=== PATIENT | male | born 1980 | race Caucasian/White ===

== ENCOUNTER 2022-05-14 20:01 | Emergency (ER) | payer OTHER ==
[~2022-05-14] VITALS: Ht 185.4 cm; Wt 81.6 kg
[~2022-05-14 20:01] MED LIST: ANAPROX DS550 MG PO; BENZOYL PEROXIDE 10% TP; DOXYCYCLINE MO100 MG PO; FLEXERIL10 MG PO; GEODON80 MG PO; MEDROL DOSEPAK4 MG PO; MOTRIN800 MG PO; TYLENOL W/CODEI1 TA2 PO; VALIUM10 MG PO; VOLTAREN75 MG PO; XANAX2 MG PO; ZITHROMAX Z PA250 MG PO; ZOVIRAX400 MG PO
[2022-05-14 20:10] VITALS: BP 132/110
[2022-05-14] MEDS ORDERED: CEPHALEXIN500 M1 PO (22:03)
[2022-05-14] MEDS ORDERED: ALBUTEROL2.5 MG/0.5 INH (22:03)
== END 2022-05-14 22:17 | disposition home or self-care (01) ==
LOC: ED 20:01
DX: M70.12 Bursitis, left hand (principal); M77.8 Other enthesopathies, not elsewhere classified; Z88.0 Allergy status to penicillin; Z88.6 Allergy status to analgesic agent; Y93.89 Activity, other specified

== ENCOUNTER 2024-01-05 19:44 | Emergency (ER) | payer OTHER ==
[~2024-01-05 19:44] MED LIST changes: +ALBUTEROL2.5 MG/0.5 INH; +CEPHALEXIN500 M1 PO
== END 2024-01-05 19:55 | disposition left against medical advice (07) ==
LOC: ED 19:44
DX: R56.9 Unspecified convulsions (principal); Z53.21 Procedure and treatment not carried out due to patient leaving prior to being seen by health care provider